=== PATIENT | male | born 1985 | race Two or more races ===

== ENCOUNTER 2024-02-27 14:34 | Emergency (ER) | payer OTHER ==
[~2024-02-27] VITALS: Ht 198.1 cm; Wt 131.0 kg
[2024-02-27] MEDS: ALBUTEROL (0.083%) 2.5MG/3ML NEB HHN STA (15:27)
[2024-02-27 15:28] VITALS: PULSE 59; RESP 16; O2SAT 98
[2024-02-27] MEDS: IPRATROPIUM BROMIDE (0.02%) 0.5MG/2.5ML NEB HHN STA (15:28)
[2024-02-27 15:39] LABS: BASOPHILS % 0.2 % (0.0-2.0); EOSINOPHILS % 2.8 % (0.0-5.0); HEMATOCRIT. 42.5 % (42.0-52.0); HEMOGLOBIN. 14.2 g/dL (14.0-18.0); LYMPHOCYTES % 30.4 % (20.0-50.0); MEAN CORPUSCULAR HEMOGLOBIN 30.6 pg (28.0-32.0); MEAN CORPUSCULAR HGB CONC 33.5 g/dL (31.0-37.0); MEAN CORPUSCULAR VOLUME 91.2 fL (80.0-94.0); MEAN PLATELET VOLUME 7.8 fl (7.4-10.4); MONOCYTES % 9.8 % (2.0-8.0); NEUTROPHILS % 56.8 % (40.0-76.0); PLATELET 228 x1000/uL (130-400); RED BLOOD CELL COUNT 4.66 mill/uL (4.7-6.1); RED CELL DISTRIBUTION WIDTH 12.5 % (11.6-14.6); WHITE BLOOD COUNT 6.4 x1000/uL (4.5-11.0)
[2024-02-27 15:45] LABS: CHLORIDE 108 mEq/L (98-107); POTASSIUM 3.7 mEq/L (3.5-5.1); SODIUM 139 mEq/L (136-145)
[2024-02-27 15:46] LABS: CARBON DIOXIDE 25 mEq/L (21-32)
[2024-02-27 15:47] LABS: CALCIUM 9.1 mg/dL (8.7-10.4)
[2024-02-27 15:51] LABS: CREATININE 1.3 mg/dL (0.6-1.3); GLUCOSE 96 mg/dL (70-105); UREA NITROGEN BLOOD 26 mg/dL (9-23)
[2024-02-27 15:52] LABS: TROPONIN I HIGH SENSITIVITY 13 ng/L (3.0-53)
[2024-02-27 19:06] VITALS: BP 133/69; PULSE 65; RESP 14; TEMP 98.2
== END 2024-02-27 19:13 | disposition home or self-care (01) ==
LOC: ER 14:34
DX: R07.89 Other chest pain (principal); F32.A Depression, unspecified; F41.9 Anxiety disorder, unspecified; Z20.822 Contact with and (suspected) exposure to COVID-19; Z98.890 Other specified postprocedural states
CPT/HCPCS: 36415; 71045; 80048; 84484; 85025; 85379; 87426; 93005; 94640; 99285